=== PATIENT | male | born 1995 | race Two or more races ===

== ENCOUNTER 2017-09-07 16:10 | Emergency (ER) | payer MEDICAID ==
--- NOTE | 2017-09-07 16:41 | ER Document Report ---
HPI - HPI Pain Level: 5 Notes: Patient is a 22-year-old male with no significant past medical history who presents to the ED complaining of right ankle pain status post injury yesterday. Patient states that he jumped from the upper landing of the stairs onto the ground and landed on his feet. Patient states that when he landed he felt pain at that time. Patient states that the pain does not radiate, but he does not want to bear weight on the right foot/ankle. Patient has otherwise been healthy recently. He denies any drug allergies. Patient does admit to smoking but denies IV drug use. Denies any head injury or loss of consciousness. Denies any headache, fever, neck pain, URI, sore throat, chest pain, palpitations, syncope, cough, shortness of breath, wheeze, dyspnea, abdominal pain, nausea/vomiting/diarrhea, urinary retention, dysuria, hematuria , loss of control of bowel or bladder, numbness/tingling, saddle anesthesia, muscle paralysis/weakness, or rash. - ROS Systems Reviewed and Negative: Yes All other systems reviewed and negative Past Medical History - Social History Smoking Status: Current Some Day Smoker Family History: Reviewed & Not Pertinent Vertical Provider Document - CONSTITUTIONAL Agree With Documented VS: Yes Notes: PHYSICAL EXAMINATION: GENERAL: Well-appearing, well-nourished and in no acute distress. NECK: Normal range of motion, supple without lymphadenopathy LUNGS: Breath sounds clear to auscultation bilaterally and equal. No wheezes rales or rhonchi. HEART: Regular rate and rhythm without murmurs, rubs, gallops. Musculoskeletal: Rt ankle: + swelling lateral ankle. No obvious ecchymosis, deformity, erythema. LROM. Strength 4+/5. Achilles intact. N/V intact distal. + tenderness to the ATFL and lateral malleolus. Extremities: No cyanosis, clubbing, or edema b/l. Peripheral pulses 2+. Capillary refill less than 3 seconds. NEUROLOGICAL: Normal speech, limping gait. Normal sensory, motor exams PSYCH: Normal mood, normal affect. SKIN: Warm, Dry, normal turgor, no rashes or lesions noted. - INFECTION CONTROL TRAVEL OUTSIDE OF THE [place] IN LAST 30 DAYS: No Course - Re-evaluation Re-evalutation: 09/07/17 16:55 Patient is an afebrile, well-hydrated, 22-year-old female male who presents to the ED with right ankle pain, suspect sprain versus strain. Vitals are acceptable. PE is otherwise unremarkable for any neurovascular compress, obvious tendon/ligament rupture, obvious fracture/dislocation, septic joint. X- ray was unremarkable for any acute pathology aside from small effusion. Toradol given IM today. Ankle stirrup splint and crutches provided. Recommend conservative measures for symptoms. Recheck with your PCM in 3-5 days. Consider consult orthopedics/physical therapy for ongoing/worsening symptoms. Return to the ED with any worsening/concerning symptoms otherwise as reviewed discharge. Patient is in agreement. Discharge - Discharge Clinical Impression: Right ankle pain Qualifiers: Chronicity: acute Qualified Code(s): M25.571 - Pain in right ankle and joints of right foot Condition: Stable Disposition: HOME, SELF-CARE Instructions: Ankle Stirrup Splint ([facility]), Use of Crutches ([facility]), Ice & Elevation ([facility]) Additional Instructions: Rest, Ice, Compression, Elevation Use crutches/splint as directed Tylenol/ibuprofen as needed Light stretches daily Strength exercises as able Moist heat and massage may help F/u with your PCP in 3-5 days for a recheck Consider consult(s) with Orthopedics/physical therapy for ongoing/worsening symptoms Return to the ED with any worsening symptoms and/or development of fever, headache, chest pain, palpitations, syncope, shortness of breath, trouble breathing, abdominal pain, n/v/d, muscle weakness/paralysis, numbness/tingling, swelling, redness, or other worsening symptoms that are concerning to you. Referrals: [facility] [Provider Group] - Follow up as needed
[2017-09-07] MEDS ORDERED: KETOROLAC TROMETHAMINE INJ/PF 30 MG/1 ML SDV IM ONE (16:46)
--- NOTE | 2017-09-07 16:52 | RADIOLOGY REPORT (SQ) ---
EXAM DESCRIPTION: ANKLE RIGHT COMPLETE COMPLETED DATE/TIME: 09/07/2017 4:38 pm REASON FOR STUDY: fall, pain . Tripped down the stairs. Pain at the ankle joint. COMPARISON: None. NUMBER OF VIEWS: Three views. TECHNIQUE: AP, lateral, and oblique radiographic images acquired of the right ankle. LIMITATIONS: None. FINDINGS: MINERALIZATION: Normal. BONES: No acute fracture or dislocation. No worrisome bone lesions. JOINTS: Small effusion. SOFT TISSUES: No soft tissue swelling. No radiopaque foreign body. IMPRESSION: Small effusion at the right ankle. No radiographic evidence of acute fracture. TECHNICAL DOCUMENTATION: JOB ID: [id number] [employer]- All Rights Reserved Reading location - IP/workstation name: [email or web address]
[2017-09-07 17:00] VITALS: BP 120/79
== END 2017-09-07 17:11 | disposition home or self-care (01) ==
LOC: ER 16:10
DX: M25.571 Pain in right ankle and joints of right foot (principal); X58.XXXA Exposure to other specified factors, initial encounter; F17.200 Nicotine dependence, unspecified, uncomplicated
CPT/HCPCS: 99283; 96372; 73610; J1885